=== PATIENT | male | born 1990 | race Caucasian/White ===

== ENCOUNTER 2017-01-19 12:32 | Emergency (ER) | payer OTHER ==
[~2017-01-19] VITALS: Ht 188 cm; Wt 111.1 kg
[2017-01-19 12:42] VITALS: BP 160/88
--- NOTE | 2017-01-19 14:41 | ED GENERAL ADULT ---
History of Present Illness General Chief Complaint: General Adult Stated Complaint: HEMORRHOID Source: patient Exam Limitations: no limitations Vital Signs & Intake/Output Vital Signs & Intake/Output Vital Signs Date Time Temp Pulse Resp B/P B/P Pulse O2 O2 Flow FiO2 Mean Ox Delivery Rate 01/19 1242 97.9 82 18 160/88 98 Room Air Room Air Allergies Coded Allergies: No Known Allergies (01/19/17) Reconcile Medications Hydrocortisone (Anusol-Hc) 2.5 % CREAM..G. 1 HANNAH TOP BID PRN hemorrhoid apply to affected area(s) Triage Note: TRIAGE: 26 Y/O MALE PRESENTS C/O ?HEMORRHOID. REPORTS NOTICED DURING A BOWEL MOVEMENT. PAIN WORSE WHEN SITTING. Triage Nurses Notes Reviewed? yes Onset: Gradual Duration: day(s): (3) Timing: recent history Injury Environment: home Severity: moderate Severity Numbers: 7 Modifying Factors: Improves With: immobilization. Worsens With: movement. HPI: Patient is a 26-year-old male presenting to the emergency department with chief complaint of hemorrhoid worsening over the past 3-4 days. Pain is worse with sitting. Pain is moderate achy throbbing. Denies any constipation or trouble with bowel movements. History of hemorrhoids in the past but they usually go and their own. He said using deqe-uqk-lyjufay topical ointments with little relief. Denies any urinary symptoms. No abdominal pain. No fevers or chills. (RIOS MARTÍNEZ) Past History Travel History Traveled to [place] past 21 day No Medical History Any Pertinent Medical History? see below for history Neurological: NONE EENT: NONE Cardiovascular: NONE Respiratory: NONE Gastrointestinal: NONE Hepatic: NONE Renal: NONE Musculoskeletal: NONE Psychiatric: NONE Endocrine: NONE Blood Disorders: NONE Cancer(s): NONE DIRECTOR PROSPECT/Reproductive: NONE Surgical History Surgical History: non-contributory Psychosocial History What is your primary language Kuwaiti Tobacco Use: Never used ETOH Use: occasional use Illicit Drug Use: denies illicit drug use Family History Hx Contributory? No (RIOS MARTÍNEZ) Review of Systems Review of Systems Constitutional: Reports: no symptoms. Comments Review of systems: See HPI, All other systems negative. Constitutional, no chills fever or weight loss HEENT: No visual changes no sore throat no congestion Cardiovascular: No chest pain ,palpitation Skin, no jaundice no rashes Respiratory: No dyspnea cough sputum or hemoptysis GI: No nausea no vomiting : No dysuria No hematuria Muscle skeletal: no back pain, no neck pain, Neurologic: No numbness no mcmillan Psych: No stress anxiety or depression,. Heme/endocrine: No bruising no bleeding no polyuria or polydipsia Immunology: No splenectomy or history of AIDS (RIOS MARTÍNEZ) Physical Exam Physical Exam General Appearance: well developed/nourished, no apparent distress, alert, awake , comfortable Comments: Well-developed well-nourished no apparent distress. HEENT: Atraumatic, extraocular motion intact Neck: Supple, no lymphadenopathy Back: Nontender Respiratory: No respiratory distress Extremities: No edema, full range of motion rectal: Thrombosed hemorrhoid approximately 2 cm in diameter at the 4 oclock position, no surround edema or erythema. mildly tender. Neuro: Alert and oriented x3 Psych: Mood affect normal, normal memory normal judgment. Core Measures ACS in differential dx? No CVA/TIA Diagnosis: No Severe Sepsis Present: No Septic Shock Present: No (RIOS MARTÍNEZ) Progress Differential Diagnoses I considered the following diagnoses in my evaluation of the patient: Thrombosed hemorrhoid, abscess, cellulitis Plan of Care: Current Medications Sig/Mark Start time Last Medication Dose Stop Time Status Admin Lidocaine 20 ML ONCE ONE 01/19 1445 UNVr (Lidocaine 1%) 01/19 144 Initial ED EKG: none (RIOS MARTÍNEZ) Departure Departure Time of Disposition: 1447 Disposition: HOME OR SELF CARE Condition: Stable Clinical Impression Primary Impression: Thrombosed hemorrhoids Referrals: SHIRIN ALONSO JR, DO PATIENT HAS NO PRIMARY CARE DR (PCP/Family) Additional Instructions: Follow-up with colorectal doctor, call to make an appointment. Applied topical Anusol to help with symptoms. Return for worsening symptoms or concerns. Departure Forms: Customer Survey General Discharge Information Prescriptions: Current Visit Scripts Hydrocortisone (Anusol-Hc) 1 HANNAH TOP BID PRN hemorrhoid #30 GM apply to affected area(s) (RIOS MARTÍNEZ) PA/HARNESS INSPECTOR Co-Sign Statement Statement: ED Attending supervision documentation- I saw and evaluated the patient. I have also reviewed all the pertinent lab results and diagnostic results. I agree with the findings and the plan of care as documented in the PA's/HARNESS INSPECTOR's documentation. x I have reviewed the ED Record and agree with the PA's/HARNESS INSPECTOR's documentation. [] Additions or exceptions (if any) to the PAs/HARNESS INSPECTOR's note and plan are summarized below: [] (LETA HUMMEL,HERMELINDA) Procedures Additional Procedures Additional Procedures: draining thrombosed hemorrhoid Progress: Area was prepped with Betadine, anesthetized with 1% lidocaine, approximately 2 mL. Semicircle incision into the hemorrhoid, clots were removed without difficulty Patient tolerated procedure well. (RIOS MARTÍNEZ) Critical Care Note Critical Care Note Critical Care Time: non-applicable (RIOS MARTÍNEZ)
[2017-01-19] MEDS ORDERED: ANUSOL-HC30 GM TOP (14:49)
== END 2017-01-19 15:18 ==
LOC: ERH 12:32
DX: K64.5 Perianal venous thrombosis (principal)